=== PATIENT | female | born 1950 | race Caucasian/White ===

== ENCOUNTER 2017-08-17 23:25 | Observation (INO) | payer OTHER ==
[~2017-08-17] VITALS: Ht 160 cm; Wt 84.2 kg
[~2017-08-17 23:25] MED LIST: ACIPHEX20 MG PO; ADVAIR 100/501 DISK IH; ALIVE; ASPIR 8181 M1 PO; ASPIRIN81 M1 PO; Aspirin Chewable PO; BENICAR20 MG PO; Bactrim,Septra DS 80 PO; Bentyl PO; CALCIUM600 MG PO; CALTRATE 6001 TABLE2 PO; CELEBREX200 MG PO; CELEXA20 MG PO; CENTRUM SILVER1 EAC3 PO; CENTRUM ULTRA1 EAC1 PO; COLACE100 MG PO; COQ-10100 MG PO; CRESTOR20 MG; CRESTOR20 MG PO; Carafate PO; Celexa PO; EFFEXOR XR150 MG PO; Ecotrin PO; FLEXERIL10 MG PO; IBUPROFEN800 MG PO; KLONOPIN0.5 M1 PO; LIPOFEN150 MG PO; LOPRESSOR50 MG; LOTEMAX5 ML BOTH EYES; LOW DOSE ASPIRI81 M1; LYRICA50 MG PO; Lopressor PO; MAGNESIUM PO; METOPROLOL TART50 MG PO; MOTRIN800 MG PO; Magnesium PO; Milk Of Magnesia,MOM PO; NAPROSYN500 MG PO; OMEGA FISH OIL PO; PANTOPRAZOLE SO40 MG PO; PEPCID40 MG PO; PRAVACHOL40 MG PO; PROTONIX40 MG PO; RELPAX40 MG PO; RESTASIS 01 DROP/0.4; RESTASIS 01 DROP/0.4 BOTH EYES; ROBAXIN500 MG; ROBAXIN500 MG PO; Restasis 0.05% BOTH EYES; SIMVASTATIN20 M1 PO; Theragran-M,Centrum, PO; ULTRAM50 MG PO; VALACYCLOVIR500 MG PO; VALTREX1000 MG PO; VALTREX50 MG/ML; VITAMIN D; VITAMIN D2000 INTUN PO; ValTRex PO; ZANTAC150 MG; ZANTAC150 MG PO; ZOVIRAX OINTMEN15 GM TP; ZOVIRAX5 GM TP; [UNRECOGNIZED DRUG - OTHER]; [UNRECOGNIZED DRUG - OTHER]; [UNRECOGNIZED DRUG - OTHER] PO; colon health PO; predniSONE PO
[2017-08-18] LABS: HEMATOCRIT 36.8 % (36.0-46.0); HEMOGLOBIN 12.3 G/DL (11.9-15.5); MCH 31.2 PG (29.0-34.0); MCHC 33.4 G/DL (30.0-36.0); MCV 93.4 FL (83-99); PLATELET COUNT 232 K/uL (156-360); RBC DIS.WIDTH-CV 12.6 % (11.8-14.6); RED BLOOD COUNT 3.94 M/uL (3.80-5.20); WHITE BLOOD COUNT 8.7 K/uL (4.1-10.2)
[2017-08-18 00:09] LABS: CHLORIDE 106 mEq/L (99-109); POTASSIUM 3.8 mEq/L (3.7-5.4); SODIUM 139 mEq/L (136-147)
[2017-08-18 00:10] LABS: GLUCOSE 101 mg/dL (70-99)
[2017-08-18 00:14] LABS: CREATININE 0.9 mg/dL (0.6-1.3); GFR ESTIMATE (CALCULATED) > 59 mL/min/
[2017-08-18 00:15] LABS: UREA NITROGEN (BUN) 17 mg/dL (9-23)
[2017-08-18 00:21] LABS: TROP-I INTERPRETATION NEGATIVE; TROPONIN-I < 0.01 ng/mL (0.0-0.30)
[2017-08-18 06:14] LABS: HDL CHOLESTEROL 44 MG/DL (Desirable>=50); LDL CHOLESTEROL 113 mg/dL (Desirable<100); NON-HDL CHOLESTEROL 156 mg/dL (Desirable<160); TOTAL CHOLESTEROL 200 mg/dL (Desirable<200); TRIGLYCERIDES 215 MG/DL (Normal: <150)
[2017-08-18 08:15] VITALS: BP 140/72; BP 147/68; BP 152/67
[2017-08-18 09:05] LABS: Estimated Average Glucose 123 mg/dL (70-123); HEMOGLOBIN A1c (GLYCOHEMOGLOB) 5.9 % HGB (Below 5.7)
[2017-08-18 12:21] VITALS: BP 162/79
[2017-08-18] MEDS ORDERED: ZANTAC150 MG PO (14:32)
[2017-08-18 15:35] VITALS: BP 179/85
[2017-08-18] MEDS ORDERED: TRILEPTAL150 MG PO (17:09)
[2017-08-18] MEDS ORDERED: CYMBALTA60 MG PO (17:09)
[2017-08-18] MEDS ORDERED: ZANAFLEX4 MG PO (17:10)
[2017-08-18 19:57] VITALS: BP 164/81
[2017-08-18 23:38] VITALS: BP 179/85
[2017-08-19 03:30] VITALS: BP 190/91
[2017-08-19 05:58] LABS: CHLORIDE 106 MEQ/L (99-109); CREATININE 1.1 MG/DL (0.6-1.3); GFR ESTIMATE (CALCULATED) 52 mL/min/; GLUCOSE 103 mg/dL (70-99); POTASSIUM 3.8 MEQ/L (3.7-5.4); SODIUM 145 MEQ/L (136-147); UREA NITROGEN (BUN) 13 mg/dL (9-23)
[2017-08-19 07:00] VITALS: BP 123/75
[2017-08-19 08:30] VITALS: BP 184/93
[2017-08-19 12:19] VITALS: BP 186/72
[2017-08-19] MEDS ORDERED: PRAVASTATIN SOD40 MG PO (14:21)
[2017-08-19] MEDS ORDERED: ASPIRIN81 M2 PO (14:21)
[2017-08-19] MEDS ORDERED: APRESOLINE10 MG PO (14:21)
[2017-08-19] MEDS ORDERED: LYRICA50 MG PO (14:21)
[2017-08-19 16:05] VITALS: BP 161/84
== END 2017-08-19 18:40 | disposition home or self-care (01) ==
LOC: EME 23:25 → EDOF 08-18 04:46 → ENRESERV 08-18 05:12 → 5WEST 08-18 06:12
PROVIDERS: Hospitalist
DX: G45.9 Transient cerebral ischemic attack, unspecified (principal); R55 Syncope and collapse; I48.91 Unspecified atrial fibrillation; I10 Essential (primary) hypertension; E78.5 Hyperlipidemia, unspecified; F32.9 Major depressive disorder, single episode, unspecified; Z79.82 Long term (current) use of aspirin; Z88.5 Allergy status to narcotic agent; K21.9 Gastro-esophageal reflux disease without esophagitis; Z88.8 Allergy status to other drugs, medicaments and biological substances; Z91.011 Allergy to milk products
CPT/HCPCS: 70450; 70496; 70498; 70551; 71046; 80048; 80061; 83036; 84484; 85027; 93005; 99281; 99285; G0378; J1644

== ENCOUNTER 2018-03-08 16:16 | Emergency (ER) | payer OTHER ==
[~2018-03-08] VITALS: Ht 162.6 cm; Wt 80.2 kg
[~2018-03-08 16:16] MED LIST changes: +APRESOLINE10 MG PO; +ASPIRIN81 M2 PO; +CYMBALTA60 MG PO; +PRAVASTATIN SOD40 MG PO; +TRILEPTAL150 MG PO; +ZANAFLEX4 MG PO
[2018-03-08 17:15] LABS: HEMATOCRIT 34.6 % (36.0-46.0); HEMOGLOBIN 11.6 G/DL (11.9-15.5); MCH 29.9 PG (29.0-34.0); MCHC 33.5 G/DL (30.0-36.0); MCV 89.2 FL (83-99); PLATELET COUNT 245 K/uL (156-360); RBC DIS.WIDTH-CV 12.5 % (11.8-14.6); RBC DIS.WIDTH-SD 40.2 % (39-53); RED BLOOD COUNT 3.88 M/uL (3.80-5.20); WHITE BLOOD COUNT 11.7 K/uL (4.1-10.2)
[2018-03-08 17:16] LABS: APPEARANCE SL.HAZY ((CLEAR)); BILIRUBIN NEGATIVE; BLOOD SMALL; COLOR YELLOW ((YELLOW)); GLUCOSE (STRIP) NEGATIVE; KETONES NEGATIVE; LEUKOCYTES LARGE; NITRITE NEGATIVE; PROTEIN (STRIP) NEGATIVE; UROBILINOGEN 0.2 MG/DL (0.2-1.0)
[2018-03-08 17:27] LABS: CHLORIDE 105 mEq/L (99-109); POTASSIUM 4.2 mEq/L (3.7-5.4); SODIUM 138 mEq/L (136-147)
[2018-03-08 17:29] LABS: GLUCOSE 97 mg/dL (70-99)
[2018-03-08 17:33] LABS: CREATININE 0.9 mg/dL (0.6-1.3); GFR ESTIMATE (CALCULATED) > 59 mL/min/
[2018-03-08 17:34] LABS: UREA NITROGEN (BUN) 9 mg/dL (9-23)
[2018-03-08 17:37] LABS: BACTERIA 1+ /HPF; EPITHELIAL CELLS 1+ /HPF; MUCUS RARE /LPF; RED BLOOD CELLS 0-5 /HPF (0-5); UCUL ADDED? YES; WHITE BLOOD CELLS 30-40 /HPF (0-5)
[2018-03-08] MEDS ORDERED: CIPRO500 MG PO (19:16)
[2018-03-08] MEDS ORDERED: FLAGYL500 MG PO (19:16)
[2018-03-08 19:30] VITALS: BP 126/67
== END 2018-03-08 19:31 | disposition home or self-care (01) ==
LOC: EME 16:16
DX: R31.9 Hematuria, unspecified (principal); K57.92 Diverticulitis of intestine, part unspecified, without perforation or abscess without bleeding; I10 Essential (primary) hypertension; K21.9 Gastro-esophageal reflux disease without esophagitis; E78.5 Hyperlipidemia, unspecified; F41.9 Anxiety disorder, unspecified; F32.9 Major depressive disorder, single episode, unspecified; Z90.710 Acquired absence of both cervix and uterus; Z88.5 Allergy status to narcotic agent; Z88.8 Allergy status to other drugs, medicaments and biological substances
CPT/HCPCS: 74176; 80048; 81003; 85027; 87086; 99281; 99284; J1885